=== PATIENT | male | born 1985 | race Caucasian/White ===

== ENCOUNTER 2016-07-15 20:20 | Inpatient (IN) | payer OTHER ==
--- NOTE | ~2016-07-15 | PA ---
Unit #: [id number] #: [id number] Patient: CHAS SULLIVAN [id number] [facility] [address] [place] [address] [id number] I MR#: [id number] NAME: CHAS SULLIVAN ROOM: P255 Age: 31 Sex: M Admission Date: 07/16/2016 : 1985 Date of Assessment: 07/16/2016 Attending Physician: Richard Jurado M.D. Admitting Physician: Richard Jurado M.D. Primary Care Physician: Primary Care Physician No PSYCHIATRIC ASSESSMENT IDENTIFYING DATA Mr. Sullivan is a 31-year-old single white male, who is a resident of [place], [place] and was self-referred to the hospital on a voluntary basis. CHIEF COMPLAINT "I don't feel like living." HISTORY OF PRESENT ILLNESS Mr. Sullivan is a 31-year-old white male with history of substance abuse and mood disorder, who was self-referred to the hospital stating that he does not feel like living, that he is depressed and that he is suicidal and that he has a plan to run in front of a car track on the express[place] and denied any homicidal ideation. He reports that he is tired of doing drugs all the time and that he just had a baby and he is not a part of his life and that he is addicted to opioids and he is an IV heroin user and uses between 1.5 to 2 g on a daily basis, last use 13 hours ago and as such, was seen to be in significant withdrawal and in distress and discomfort. Reporting cold sweats, tears, and sniffles and restless legs and irritability. He also uses Xanax when he can get them, reported that he used 3 to 4 pills at time and the last use was last night. He does report increasing depression, anxiety, and reports that he has not slept in 4 days and has been drinking a pint to a fifth of bourbon a day and has had two shots earlier and as such, he was seen to be a significant danger to himself and therefore, recommendation for inpatient chemical dependency level of care was made and the patient was transferred to us. SUBSTANCE ABUSE HISTORY The patient reports that he started with alcohol at age of 11 and since then, he has experimented and abused alcohol, cannabis, cocaine, opioids, amphetamines, and benzodiazepines. Currently, he reports IV heroin to be his drug of choice and he has been using Xanax and heroin on a regular basis as well. PAST PSYCHIATRIC HISTORY The patient has had history of 2 prior inpatient chemical dependency treatments at [facility] in addition to being at [facility] for long-term rehab level of care. Currently, he is not active in any treatment program, is not seeing a psychiatrist, and not taking any psychotropic medications. PAST MEDICAL HISTORY Hepatitis C. Unit #: [id number] #: [id number] Patient: CHAS SULLIVAN ALLERGIES No known medication allergies. CURRENT MEDICATIONS None. PERSONAL AND SOCIAL HISTORY A 31-year-old white male, who reports that he is single, unemployed, and essentially homeless, and has poor social support system. MENTAL STATUS EXAMINATION Young white male, who was casually dressed with fair personal hygiene, appears to be in no acute distress or discomfort. He was awake and alert on interaction with intact orientation to time, place, and person. His mood was anxious and depressed with a congruent affect. His speech was slow and goal directed. He reports having suicidal ideations, but denies any homicidal ideations, and also denies any auditory or visual hallucinations. His insight and judgment remain significantly impaired. DIAGNOSTIC IMPRESSION Psychiatric: Major depressive disorder, recurrent, moderate, without psychotic features; opioid dependence, moderate and acute withdrawals; alcohol dependence, moderate and acute withdrawals; benzodiazepine dependence, moderate and acute withdrawals. Medical: Hepatitis C. Stressors: Moderate psychosocial stressors. TREATMENT PLAN 1. The patient has presented with history of mood disorder and substance abuse and has been decompensating and will need inpatient hospitalization for detoxification, safety, and stabilization. We will start him back on his home medications. We will adjust medications and monitor response. 2. Supportive therapy was provided to the patient. ESTIMATED LENGTH OF STAY 5 to 7 days. ABILITY TO HELP SELF Limited. WILLINGNESS TO HELP SELF The patient appears to be willing to help self. STRENGTHS 1. Communicative. 2. Cooperative. PROBLEMS 1. Chronic dysphoric symptoms. 2. Chronic chemical dependency. 3. Poor social support system. DISCHARGE CRITERIA This will be contingent upon the patient's ability to go through detox without having any significant withdrawal symptoms as well his ability to stay safe to himself, particularly after discharge from the hospital. Unit #: [id number] #: [id number] Patient: CHAS SULLIVAN Dictated by... Sofiya Gentile/shannan TD: 07/16/2016 07:39 JOB #: [id number] PSYCHIATRIC ASSESSMENT Page 1 of 1 X Richard Jurado MD PSYCHIATRIC ASSESSMENT
--- NOTE | ~2016-07-15 | PN ---
Unit #: [id number] #: [id number] Patient: CHAS SULLIVAN [id number] [facility] [address] [place] [address] [id number] I MR#: [id number] NAME: CHAS SULLIVAN ROOM: [facility] Age: 31 Sex: M Admission Date: 07/16/2016 : 1985 Attending Physician: Richard Jurado M.D. Admitting Physician: Sofiya Gentile NOTES DATE OF SERVICE: 07/18/2016 SUBJECTIVE Mr. Sullivan is a 31-year-old white male, who was seen today and chart was reviewed and the case was discussed with the staff. He has been anxious, withdrawn, and rather seclusive to himself. Meanwhile, he has been cooperative with the treatment recommendations and has been taking the medications and tolerating them fairly well. MENTAL STATUS EXAMINATION Young white male, who was casually dressed with fair personal hygiene, appears to be in no acute distress or discomfort. He was awake and alert on interaction with intact orientation. His mood was anxious with a congruent affect. He denies any suicidal or homicidal ideation. His insight and judgment remain significantly impaired. TREATMENT PLAN 1. We will continue him on his current medications and treatment protocol. We will monitor response to medications and make further adjustments as needed. 2. We will continue to follow up. Dictated by... Sofiya Gentile/michellel TD: 07/19/2016 17:30 JOB #: [id number] [facility] NOTES Page 1 of 1 X Richard Jurado MD PROGRESS NOTE
--- NOTE | ~2016-07-15 | PN ---
Unit #: [id number] #: [id number] Patient: CHAS SULLIVAN [id number] [facility] [address] [place] [address] [id number] I MR#: [id number] NAME: CHAS SULLIVAN ROOM: [facility] Age: 31 Sex: M Admission Date: 07/16/2016 : 1985 Attending Physician: Richard Jurado M.D. Admitting Physician: Sofiya Gentile PROGRESS NOTES DATE OF SERVICE: 07/20/2016 SUBJECTIVE Mr. Sullivan is a 31-year-old white male, who was seen today and chart was reviewed and the case was discussed with the staff. He has been anxious, withdrawn, and rather seclusive to himself. Meanwhile, he appears to be coming out of the detox without any complications and he has been taking the medications and tolerating them fairly well with no reported side effects. MENTAL STATUS EXAMINATION Young white male, who was casually dressed with fair personal hygiene, appears to be in no acute distress or discomfort. He was awake and alert on interaction with intact orientation. His mood was anxious with a congruent affect. He denies any suicidal or homicidal ideations. His insight and judgment remain slightly impaired. TREATMENT PLAN 1. We will continue him on his current treatment protocol. We will monitor his response to the medications and make further adjustments as needed. 2. We will continue to follow up. Dictated by... Sofiya Gentile/michellel TD: 07/20/2016 13:21 JOB #: [id number] [facility] PROGRESS NOTES Page 1 of 1 X Richard Jurado MD PROGRESS NOTE
--- NOTE | ~2016-07-15 | PN ---
Unit #: [id number] #: [id number] Patient: CHAS SULLIVAN [id number] [facility] [address] [place] [address] [id number] I MR#: [id number] NAME: CHAS SULLIVAN ROOM: [facility] Age: 31 Sex: M Admission Date: 07/16/2016 : 1985 Attending Physician: Richard Juardo M.D. Admitting Physician: Richard Jurado M.D. Primary Care Physician: Primary Care Physician Cecilia HOGAN NOTES DATE OF SERVICE: 07/17/2016 SUBJECTIVE Mr. Sullivan is a 31-year-old male, who was seen today and chart was reviewed and the case was discussed with the staff. He has been anxious, withdrawn, and rather seclusive to himself. Meanwhile, he has been cooperative with the treatment recommendations and has been taking the medications and tolerating them fairly well with no reported side effects. MENTAL STATUS EXAMINATION Young male, who was casually dressed with fair personal hygiene, appears to be in no acute distress or discomfort. He was awake and alert with impaired attention and concentration. His mood was anxious with a congruent affect. His speech was slow and restricted in content. His thought processes were disorganized with some looseness of associations. His insight and judgment remain significantly impaired. TREATMENT PLAN 1. We will continue him on his current treatment protocol. We will monitor his response to the medications and make further adjustments as needed. 2. We will continue to follow up. Dictated by... Sofiya Gentile/shannan TD: 07/17/2016 16:08 JOB #: [id number] Unit #: [id number] #: [id number] Patient: CHAS SULLIVAN [place] PROGRESS NOTES Page 1 of 1 X Richard Jurado MD PROGRESS NOTE
--- NOTE | ~2016-07-15 | DS ---
Unit #: [id number] #: [id number] [facility] [id number] [facility] [address] [place] [address] [id number] I MR#: [id number] NAME: CHAS SULLIVAN ROOM: [facility] Age: 31 Sex: M Admission Date: 07/16/2016 : 1985 Discharge Date: 07/21/2016 Attending Physician: Richard Jurado M.D. Primary Care Physician: Primary Care Physician No DISCHARGE SUMMARY IDENTIFYING DATA Mr. Sullivan is a 31-year-old, single, white male who is a resident of [place], [place] and was self-referred to the hospital on a voluntary basis. DISCHARGE DIAGNOSES Psychiatric: Major depressive disorder, recurrent, moderate, without psychotic features; opioid dependence, moderate and acute withdrawals; alcohol dependence, moderate and acute withdrawals; benzodiazepine dependence, moderate and acute withdrawals. Medical: Hypertension. Stressors: Moderate psychosocial stressors. HISTORY OF PRESENT ILLNESS Please see initial psychiatric evaluation for details. PAST PSYCHIATRIC HISTORY Please see initial psychiatric evaluation for details. PAST MEDICAL HISTORY Please see initial psychiatric evaluation for details. HOSPITAL COURSE The patient was [facility] and was oriented to the hospital environment. Routine p.r.n. medications were initiated, and he was started back on his home medications. Detox protocol was initiated and he was closely monitored. He was taking the medications regularly and was tolerating them fairly well, and was able to show a decent and therapeutic response with improvement in depression and anxiety, and was willing to continue treatment on an outpatient basis and as such, it was decided that he will be discharged home and will continue treatment on an outpatient basis. DISCHARGE MEDICATIONS Remeron 15 mg at bedtime for depression. DISCHARGE CONDITION Stable. PROGNOSIS Fair. Dictated by... Unit #: [id number] #: [id number] Patient: CHAS SULLIVAN Sofiya Gentile/shannan TD: 07/21/2016 21:03 JOB #: [id number] DISCHARGE SUMMARY Page 1 of 1 X Richard Jurado MD X DISCHARGE SUMMARY
--- NOTE | ~2016-07-15 | HP ---
Unit #: [id number] #: [id number] Patient: JEAN CHOWDARY [id number] [facility] [address] [place] [address] [id number] MR#: [id number] NAME: JEAN CHOWDARY ROOM: P255 Age: 31 Sex: M Admission Date: 07/16/2016 : 1985 Attending Physician: Richard Jurado M.D. Admitting Physician: Richard Jurado M.D. Primary Care Physician: No Primary Care Physician HISTORY AND PHYSICAL HISTORY OF PRESENT ILLNESS Jean is a 31-year-old admitted to [address] [place] [address] because of his continued drug use. He has had other admissions to this facility for the same. PAST MEDICAL HISTORY 1. Long history of illicit substance abuse to include IV heroin. 2. Hepatitis C. PAST SURGICAL HISTORY Facial reconstruction after an accident with a tree. ALLERGIES No known drug allergies. SOCIAL HISTORY He smokes one pack per day. Denies alcohol. Admits to a long history of illicit substance abuse to include IV heroin. FAMILY HISTORY Medically noncontributory. REVIEW OF SYSTEMS CONSTITUTIONAL: No fever or chills. HEENT: Denies any sore throat, ear pain or runny nose. CARDIOVASCULAR: Denies chest pain, irregular heart rhythm or palpitations. CHEST: Denies shortness of breath or cough. No hemoptysis. GASTROINTESTINAL: Denies nausea, vomiting, diarrhea or chronic constipation. ENDOCRINE: Denies history of increased thirst or urination. No recent significant weight loss or gain. GENITOURINARY: Denies dysuria, frequency, or hematuria. SKIN: Denies any rashes. HEMATOLOGIC: Denies history of increased bleeding or bruising. MUSCULOSKELETAL: Denies any hot, swollen joints. No generalized muscle pain. NEUROLOGIC: Denies problems with vision or speech. No frequent, severe headaches. No numbness, tingling or weakness in any extremities. Denies loss of bladder or bowel control. CURRENT MEDICATIONS 1. Detox protocol. 2. Nicotine patch 14 mg every day. Unit #: [id number] #: [id number] Patient: JEAN CHOWDARY PHYSICAL EXAMINATION GENERAL: Alert, well nourished, and in no apparent distress. VITAL SIGNS: Blood pressure 140/94, heart rate 80, respirations 16, temperature 98.6, weight 140 pounds, and height 5 feet, 8 inches. SKIN: Warm and dry without rash or lesion. HEENT: Normocephalic. TMs not viewed. Oral and nasal passages clear. Conjunctivae clear. PERRLA. EOMs intact. NECK: Supple without lymphadenopathy or thyromegaly. HEART: Regular rate and rhythm without murmur. LUNGS: Clear. ABDOMEN: Soft, nontender. : Not done. EXTREMITIES: No evidence of cyanosis, clubbing or edema. Moves all without focal deficit. NEUROLOGICAL: Grossly within normal limits. Cranial Nerves: II: Visual cobb are intact. III, IV AND : Extraocular movements are intact. Pupils are equal, round and reactive to light. V: Facial sensation is grossly normal. VII: Facial movements and expression are normal. VIII: Auditory acuity grossly intact. IX, X: Uvula is midline. Phonation is normal. XI: Patient shrugs shoulders and turns head normally. XII: Tongue protrudes in the midline. Sensory and Motor Function: Sensory and motor sensation is grossly normal. Motor: moves all extremities well. Coordination: Gait is normal. Deep Tendon Reflexes: Intact. IMPRESSION Psychiatric admission. RECOMMENDATIONS PSYCHIATRIC: Per psychiatrist. MEDICAL: I see no contraindication to participating in facility's activities. MEDICAL PROGNOSIS Good. MEDICAL CONDITION Stable. Dictated by... Franca Crowe P.A.-C. for Sofiya Gross/puja TD: 07/17/2016 10:07 JOB #: [id number] Unit #: [id number] #: [id number] Patient: JEAN CHOWDARY HISTORY AND PHYSICAL Page 1 of 1 X Franca Crowe HISTORY AND PHYSICAL
--- NOTE | ~2016-07-15 | PN ---
Unit #: [id number] #: [id number] Patient: CHAS SULLIVAN [id number] [facility] [address] [place] [address] [id number] I MR#: [id number] NAME: CHAS SULLIVAN ROOM: [facility]5 Age: 31 Sex: M Admission Date: 07/16/2016 : 1985 Attending Physician: Richard Jurado M.D. Admitting Physician: Richard Jurado M.D. Primary Care Physician: Primary Care Physician Cecilia HOGAN NOTES DATE 07/19/2016 DISCUSSION Mr. Sullivan is a 31-year-old, white male who was seen today and chart was reviewed and case was discussed with the staff. He has been anxious, withdrawn and rather seclusive to himself. Meanwhile, he has been cooperative with treatment recommendations. He has been taking medications and tolerating them fairly well with no reported side effects. MENTAL STATUS EXAM Young white male who was casually dressed with fair personal hygiene, appears to be in no acute distress or discomfort. He was awake and alert on interaction with intact orientation. His mood was anxious with congruent affect. He denies any suicidal or homicidal ideation. Also, denies any auditory or visual hallucinations. His insight and judgement remains slightly impaired. TREATMENT PLAN 1. We will continue him on his current treatment protocol. We will monitor his response and make further adjustments as needed. 2. We will continue to follow up. Dictated by... Sofiya Gentile/bryan TD: 07/20/2016 16:36 JOB #: [id number] Unit #: [id number] #: [id number] Patient: CHAS SULLIVAN PROGRESS NOTES Page 1 of 1 X Richard Jurado MD PROGRESS NOTE
[2016-07-16 09:54] LABS: URINE APPEARANCE CLEAR; URINE BILIRUBIN NEG (NEG); URINE BLOOD NEG (NEG); URINE COLOR YELLOW; URINE GLUCOSE NEG (NEG); URINE KETONE NEG (NEG); URINE LEUKOCYTE ESTERASE NEG (NEG); URINE NITRATE NEG (NEG); URINE PROTEIN NEG (NEG); URINE SPECIFIC GRAVITY 1.016 (1.003-1.035)
[2016-07-16 11:53] LABS: AMPHETAMINE NEG (NEG); BARBITURATES NEG (NEG); BENZODIAZEPINES NEG (NEG); COCAINE NEG (NEG); MARIJUANA POS (NEG); OPIATES NEG (NEG); TRICYCLIC ANTIDEPRESSANTS NEG (NEG); U METHADONE NEG (NEG)
[2016-07-17 09:56] LABS: BASOPHIL% 0.6 % (0-2.5); EOSINOPHIL# 0.1 X10e3 (0-0.7); EOSINOPHIL% 1.1 % (0.0-7.0); HEMATOCRIT 42.4 % (38.0-50.0); HEMOGLOBIN 14.3 gm/dL (13.0-16.0); LYMPHOCYTE# 2.4 X10e3 (1.0-3.5); LYMPHOCYTE% 29.1 % (17.0-45.0); MEAN CELL VOLUME 88.7 FL (83-96); MEAN CORPUSCULAR HEMOGLOBIN 29.9 PG (28-34); MEAN CORPUSCULAR HGB CONC 33.7 g/dL (30-36); MEAN PLATELET VOLUME 7.4 FL (6.5-11.5); MONOCYTE# 0.4 X10e3 (0-1.0); MONOCYTE% 5.1 % (3.0-12.0); NEUTROPHIL# 5.2 X10e3 (1.5-7.1); NEUTROPHIL% 64.1 % (40-75); PLATELET COUNT 270 X10e3 (140-420); RED BLOOD COUNT 4.78 X10e (3.90-5.60); RED CELL DISTRIBUTION WIDTH 13.1 % (11.0-15.5); WHITE BLOOD COUNT 8.1 X10e3 (4.0-10.5)
[2016-07-17 09:58] LABS: DIFF IND NO
[2016-07-17 09:59] LABS: ALBUMIN SERUM 3.7 g/dL (3.5-5.0); BILIRUBIN,TOTAL 0.8 mg/dL (0.2-2.0); BUN/CREATININE RATIO 14.44; CALCIUM SERUM 8.7 mg/dL (8.4-10.2); CREATININE SERUM 0.9 mg/dL (0.6-1.4); GLOM FILT RATE Estimated 112.6 mL/min (>60); POTASSIUM 4.7 mmol/L (3.5-5.1); PROTEIN TOTAL SERUM 6.8 g/dL (6.0-8.3)
[2016-07-17 13:11] LABS: AMPHETAMINE NEG (NEG); BARBITURATES NEG (NEG); BENZODIAZEPINES NEG (NEG); COCAINE NEG (NEG); MARIJUANA NEG (NEG); OPIATES NEG (NEG); TRICYCLIC ANTIDEPRESSANTS NEG (NEG); U METHADONE NEG (NEG)
== END 2016-07-21 11:30 | disposition home or self-care (01) | DRG 885 ==
LOC: P2L 07-16 01:55
PROVIDERS: Psychiatry & Neurology Psychiatry
PROC: HZ2ZZZZ Detoxification Services for Substance Abuse Treatment (ICD-10-PCS; principal; 2016-07-16)
DX: F33.1 Major depressive disorder, recurrent, moderate (principal); F10.239 Alcohol dependence with withdrawal, unspecified; F11.23 Opioid dependence with withdrawal; F13.239 Sedative, hypnotic or anxiolytic dependence with withdrawal, unspecified; B19.20 Unspecified viral hepatitis C without hepatic coma; F17.210 Nicotine dependence, cigarettes, uncomplicated
CPT/HCPCS: 80053; 80307; 81003; 85025; 86592

== ENCOUNTER 2016-07-30 20:00 | Inpatient (IN) | payer OTHER ==
--- NOTE | ~2016-07-30 | PN ---
Unit #: [id number] #: [id number] Patient: CHAS SULLIVAN [id number] [facility] [address] [place] [address] [id number] I MR#: [id number] NAME: CHAS SULLIVAN ROOM: 82 Age: 31 Sex: M Admission Date: 07/30/2016 : 1985 Attending Physician: Richard Jurado M.D. Admitting Physician: Richard Jurado M.D. Primary Care Physician: Primary Care Physician Cecilia HOGAN NOTES DATE OF SERVICE: 08/01/2016 SUBJECTIVE Mr. Sullivan is a 31-year-old white male, who was seen today and chart was reviewed and the case was discussed with the staff. He has been anxious, withdrawn, unkempt, disheveled, and rather seclusive to himself. Unable to function or carry on any conversation and staff reports that he has been anxious, withdrawn, seclusive, is not being socializing or interacting. He has not shown any agitation or aggression. MENTAL STATUS EXAMINATION Young white male, who was casually dressed with marginal personal hygiene, appears to be in no acute distress or discomfort. He was awake and alert on interaction with intact orientation. His mood was anxious with a congruent affect. He denies any suicidal or homicidal ideations. His insight and judgment remain slightly impaired. TREATMENT PLAN 1. We will continue him on his current treatment protocol. We will monitor his response to the medications and make further adjustments as needed. 2. We will continue to follow up. Dictated by... Sofiya Gentile/shannan TD: 08/02/2016 00:45 JOB #: [id number] Unit #: [id number] #: [id number] Patient: CHAS SULLIVAN PROGRESS NOTES Page 1 of 1 X Richard Jurado MD PROGRESS NOTE
--- NOTE | ~2016-07-30 | PN ---
Unit #: [id number] #: [id number] Patient: CHAS SULLIVAN [id number] [facility] [address] [place] [address] [id number] I MR#: [id number] NAME: CHAS SULLIVAN ROOM: 82 Age: 31 Sex: M Admission Date: 07/30/2016 : 1985 Attending Physician: Richard Jurado M.D. Admitting Physician: Richard Jurado M.D. Primary Care Physician: Primary Care Physician Cecilia HOGAN NOTES DATE August 02, 2016 DISCUSSION Mr. Sullivan is a 31-year-old white male, who was seen today and chart was reviewed and the case was discussed with the staff. He appears to be doing somewhat better and he is able to get out of his room today and was able to go to therapy groups. Meanwhile, he has been taking the medications and tolerating them fairly well with no reported side effects. MENTAL STATUS EXAMINATION Young white male, who was casually dressed with fair personal hygiene and appears to be in no acute distress or discomfort. He was awake and alert on interaction with intact orientation. His mood is anxious with a congruent affect. He denies any suicidal or homicidal ideations, and also denies any auditory or visual hallucinations. His insight and judgment remain slightly impaired. TREATMENT PLAN 1. We will continue him on his current medications and treatment protocol, and will monitor his response to the medications, and make further adjustments as needed. 2. We will continue to followup. Dictated by... Sofiya Gentile/lorenzo TD: 08/03/2016 08:49 JOB #: [id number] Unit #: [id number] #: [id number] Patient: CHAS SULLIVAN PROGRESS NOTES Page 1 of 1 X Richard Jurado MD PROGRESS NOTE
--- NOTE | ~2016-07-30 | HP ---
Unit #: [id number] #: [id number] Patient: JEAN CHOWDARY [id number] [facility] [address] [place] [address] [id number] I MR#: [id number] NAME: JEAN CHOWDRAY ROOM: P182 Age: 31 Sex: M Admission Date: 07/30/2016 : 1985 Attending Physician: Richard Jurado M.D. Admitting Physician: Richard Jurado M.D. Primary Care Physician: Primary Care Physician No HISTORY AND PHYSICAL Jean is a 31 year old admitted to [facility] because of his continued drug use. He was just discharged from this facility after treatment for the same. Patient was seen and H and P dated 07/16/16 was reviewed. This is current. No changes. Please see H and P dated 07/16/16. Dictated by... Franca Crowe P.A.-C. for Sofiya Gross/nevaeh TD: 07/31/2016 20:26 JOB #: [id number] HISTORY AND PHYSICAL Page 1 of 1 X Franca Crowe HISTORY AND PHYSICAL
--- NOTE | ~2016-07-30 | PA ---
Unit #: [id number] #: [id number] Patient: CHAS SULLIVAN [id number] [facility] [address] [place] [address] [id number] MR#: [id number] NAME: CHAS SULLIVAN ROOM: P182 Age: 31 Sex: M Admission Date: 07/30/2016 : 1985 Date of Assessment: 07/31/2016 Attending Physician: Richard Jurado M.D. Admitting Physician: Richard Jurado M.D. Primary Care Physician: Primary Care Physician No PSYCHIATRIC ASSESSMENT DATE OF SERVICE 07/31/2016. IDENTIFYING DATA Mr. [place] is a 31-year-old single white male, who is a resident of [place], [place] and was self-referred to the hospital on a voluntary basis. CHIEF COMPLAINT "I'm really depressed and upset." HISTORY OF PRESENT ILLNESS Mr. [place] is 31-year-old white male with history of mood disorder and substance abuse, who is known to us from previous encounter, and was brought to the hospital by his mother. Upon presentation, he stated "I don't feel like living anymore. I was going to either shoot up enough heroin to overdose and I was going to walk in front of a [employer] truck and get run over, but decided to come in here instead if I don't get some help tonight, I will still end up doing it." The patient reports that he has been using 1 to 1.5 g of IV heroin a day with last use being last night. He reports that he has also infrequently using alcohol and methamphetamine. His last use of alcohol was in the afternoon, stating that he drank 4 to 6 beers at that time. He reports the last use of methamphetamine was yesterday, stating that he used 1 to 2 points and reports that he typically uses 1 to 2 times a month of methamphetamine and drinks alcohol few times a week and does report increasing depression and anxiety with minimal supportive relationships and has a girlfriend that she is not sober and that she has 2 children, but has minimal contact with them at this point due to his substance abuse issues. He does endorse significant consequences because of addiction and reports increasing depression, anxiety, feelings of hopelessness and helplessness, and suicidal ideations with intent and plan and as such, recommendation for inpatient level of care for safety and stabilization was made and the patient was transferred to us. SUBSTANCE ABUSE HISTORY The patient reports extensive history of substance abuse and dependence including alcohol, cannabis, cocaine, opioids, and methamphetamine, and benzodiazepines, though it appears that currently opioids has been his drug of choice. PAST PSYCHIATRIC HISTORY The patient has a history of inpatient chemical dependency treatments at Unit #: [id number] #: [id number] Patient: CHAS SULLIVAN [facility] in addition to being at [facility]. Review of the medical records indicate currently he is supposed to be on Remeron, but is not clear if he has been compliant with medications. PAST MEDICAL HISTORY The patient's medical history significant for hepatitis C. ALLERGIES No known medication allergies. PERSONAL AND SOCIAL HISTORY A 31-year-old white male, who reports that he is single and unemployed and homeless and has poor social support system. MENTAL STATUS EXAMINATION Young white male, who was casually dressed with fair personal hygiene, appears to be in no acute distress or discomfort. He was awake and alert on interaction with intact orientation to time, place, and person. His mood was anxious and depressed with congruent affect. His speech was slow and restricted in content. His thought processes were disorganized with some looseness of associations and suicidal ideations. His insight and judgment remain significantly impaired. DIAGNOSTIC IMPRESSION Psychiatric: Major depressive disorder, recurrent, moderate, without psychotic features; opioid dependence, moderate and acute withdrawals; alcohol dependence, moderate and acute withdrawal; methamphetamine dependence, moderate. Medical: Hepatitis C. Stressors: Moderate psychosocial stressors. TREATMENT PLAN 1. The patient has presented with history of substance abuse and mood disorder, and has been decompensating and will need inpatient hospitalization for detoxification, safety, and stabilization. We will start him on detox protocol. We will also start him back on his antidepressant therapy. We will monitor response and make further adjustments as needed. 2. Supportive therapy was provided to the patient. 3. Safe, structured, and nourishing environment will be reported. ESTIMATED LENGTH OF STAY 5 to 7 days. ABILITY TO HELP SELF Limited. WILLINGNESS TO HELP SELF The patient appears to be willing to help self. STRENGTHS 1. Communicative. 2. Cooperative. PROBLEMS 1. Chronic dysphoric symptoms. 2. Chronic chemical dependency. 3. Poor social support system. Unit #: [id number] #: [id number] Patient: CHAS SULLIVAN DISCHARGE CRITERIA This will be contingent upon the patient's ability to go through detox without having any significant withdrawal symptoms and his ability to stay safe to himself, particularly after discharge from the hospital. Dictated by... Sofiya Gentile/shannan TD: 07/31/2016 06:36 JOB #: [id number] PSYCHIATRIC ASSESSMENT Page 1 of 1 X Richard Jurado MD X PSYCHIATRIC ASSESSMENT
--- NOTE | ~2016-07-30 | PN ---
Unit #: [id number] #: [id number] Patient: CHAS SULLIVAN [id number] [facility] [address] [place] [address] [id number] MR#: [id number] NAME: CHAS SULLIVAN ROOM: P182 Age: 31 Sex: M Admission Date: 07/30/2016 : 1985 Attending Physician: Richard Jurado M.D. Admitting Physician: Richard Jurado M.D. Primary Care Physician: Primary Care Physician Cecilia BLAS PROGRESS NOTES DATE OF SERVICE: 08/03/2016 SUBJECTIVE Mr. [place] is a 31-year-old white male who was seen today and chart was reviewed and case was discussed with the staff. He has been anxious, withdrawn, and rather seclusive to himself, though reports feeling better and appears to be coming out of the detox without any complications. He has been taking the medications and tolerating them fairly well with no reported side effects. MENTAL STATUS EXAMINATION Young white male who was casually dressed with fair personal hygiene, appears to be in no acute distress or discomfort. He was awake and alert on interaction with intact orientation. His mood was anxious with a congruent affect. He denies any suicidal or homicidal ideations. His insight and judgment remain slightly impaired. TREATMENT PLAN 1. We will continue him on his current treatment protocol. We will monitor his response and make further adjustments as needed. 2. We will continue to follow up. Dictated by... Sofiya Gentile/shannan TD: 08/05/2016 00:20 JOB #: [id number] [facility] PROGRESS NOTES Page 1 of 1 X Richard Jurado MD PROGRESS NOTE
--- NOTE | ~2016-07-30 | DS ---
Unit #: [id number] #: [id number] [facility] [id number] [facility] [address] [place] [address] [id number] MR#: [id number] NAME: CHAS SULLIVAN ROOM: 82 Age: 31 Sex: M Admission Date: 07/30/2016 : 1985 Discharge Date: 08/04/2016 Attending Physician: Richard Jurado M.D. Primary Care Physician: Primary Care Physician No DISCHARGE SUMMARY IDENTIFYING DATA Mr. Sullivan is a 31-year-old, single, white male who is a resident of [place], [place] and was self-referred to the hospital on a voluntary basis. DISCHARGE DIAGNOSES Psychiatric: Major depressive disorder, recurrent, moderate, without psychotic features; opioid dependence, moderate and acute withdrawals; alcohol dependence, moderate and acute withdrawals; methamphetamine dependence, moderate. Medical: Hepatitis C. Stressors: Moderate psychosocial stressors. HISTORY OF PRESENT ILLNESS Please see initial psychiatric evaluation for details. PAST PSYCHIATRIC HISTORY Please see initial psychiatric evaluation for details. PAST MEDICAL HISTORY Please see initial psychiatric evaluation for details. HOSPITAL COURSE The patient was admitted to the adult chemical dependency unit at [facility] and was oriented to the hospital environment. Routine p.r.n. medications were initiated and started on the detox protocol and was closely monitored. He was taking the medications regularly and was tolerating them fairly well, and was able to come out of the detox without any complications and was willing to continue treatment on an outpatient basis and as such, it was decided that he will be discharged home and will continue treatment on an outpatient basis. DISCHARGE MEDICATIONS Remeron 15 mg at bedtime for depression. DISCHARGE CONDITION Stable. PROGNOSIS Fair. Dictated by... Richard Jurado M.D. Unit #: [id number] #: [id number] Patient: CHAS SULLIVAN IAA/modl TD: 08/04/2016 21:53 JOB #: [id number] DISCHARGE SUMMARY Page 1 of 1 X Richard Jurado MD X DISCHARGE SUMMARY
[2016-07-31 09:38] LABS: BASOPHIL# 0.1 X10e3 (0-0.3); BASOPHIL% 0.8 % (0-2.5); EOSINOPHIL# 0.1 X10e3 (0-0.7); EOSINOPHIL% 1.8 % (0.0-7.0); HEMATOCRIT 41.7 % (38.0-50.0); HEMOGLOBIN 13.9 gm/dL (13.0-16.0); LYMPHOCYTE# 2.2 X10e3 (1.0-3.5); LYMPHOCYTE% 34.2 % (17.0-45.0); MEAN CELL VOLUME 89.9 FL (83-96); MEAN CORPUSCULAR HEMOGLOBIN 29.9 PG (28-34); MEAN CORPUSCULAR HGB CONC 33.3 g/dL (30-36); MEAN PLATELET VOLUME 7.4 FL (6.5-11.5); MONOCYTE# 0.8 X10e3 (0-1.0); MONOCYTE% 12.1 % (3.0-12.0); NEUTROPHIL# 3.3 X10e3 (1.5-7.1); NEUTROPHIL% 51.1 % (40-75); PLATELET COUNT 229 X10e3 (140-420); RED BLOOD COUNT 4.64 X10e (3.90-5.60); RED CELL DISTRIBUTION WIDTH 13.5 % (11.0-15.5); WHITE BLOOD COUNT 6.4 X10e3 (4.0-10.5)
[2016-07-31 09:40] LABS: DIFF IND NO
[2016-07-31 12:20] LABS: ALBUMIN SERUM 3.6 g/dL (3.5-5.0); BILIRUBIN,TOTAL 1.5 mg/dL (0.2-2.0); BUN/CREATININE RATIO 12.5; CALCIUM SERUM 8.8 mg/dL (8.4-10.2); CREATININE SERUM 0.8 mg/dL (0.6-1.4); GLOM FILT RATE Estimated 118.2 mL/min (>60); POTASSIUM 3.9 mmol/L (3.5-5.1); PROTEIN TOTAL SERUM 6.6 g/dL (6.0-8.3)
== END 2016-08-04 11:22 | DRG 885 ==
LOC: P1E 21:32
PROVIDERS: Psychiatry & Neurology Psychiatry
PROC: HZ2ZZZZ Detoxification Services for Substance Abuse Treatment (ICD-10-PCS; principal; 2016-07-30)
DX: F33.1 Major depressive disorder, recurrent, moderate (principal); F15.20 Other stimulant dependence, uncomplicated; F11.23 Opioid dependence with withdrawal; F10.239 Alcohol dependence with withdrawal, unspecified; F17.210 Nicotine dependence, cigarettes, uncomplicated
CPT/HCPCS: 80053; 85025; 86592